=== PATIENT | female | born 1960 | race Caucasian/White ===

== ENCOUNTER 2020-09-06 13:02 | Outpatient (CLI) | payer MEDICAID, SELFPAY ==
--- NOTE | 2020-09-06 13:12 | XRR_ITS ---
PROCEDURE INFORMATION: Exam: XR Chest, 2 Views Exam date and time: 09/06/2020 1:12 PM Age: 60 years old Clinical indication: Cough; Additional info: Cough x 6 months TECHNIQUE: Imaging protocol: XR of the chest Views: 2 views. COMPARISON: No relevant prior studies available. FINDINGS: Lungs: Unremarkable. No consolidation. Pleural space: Unremarkable. No pleural effusion. No pneumothorax. Heart/Mediastinum: Unremarkable. No cardiomegaly. Bones/joints: Unremarkable. XR/XR chest 2V* [id number] IMPRESSION: No acute findings.
== END 2020-09-06 13:03 | disposition home or self-care (01) ==
PROVIDERS: PCP Family Medicine; Visit Provider Family Medicine
DX: R05 Cough (principal)
CPT/HCPCS: 71046

== ENCOUNTER 2020-11-22 08:44 | Outpatient (CLI) | payer MEDICAID, SELFPAY ==
--- NOTE | 2020-11-22 08:55 | MM_ITS ---
WS: [id number] SCREENING DIGITAL MAMMOGRAM WITH CAD HISTORY: SCREENING COMPARISON: 09/13/2019, 07/07/2018 and 07/16/2016 Bilateral CC and MLO views submitted. Computer aided detection analyzed. Breast composition: There are scattered areas of fibroglandular density. Increasing density and asymm etry seen best on the LEFT MLO projection in the superior breast measures 8 mm. Not significantly josefina nged on the CC projection. Otherwise no change. Biopsy clip noted 3:00 RIGHT breast. MM/[id number] IMPRESSION: BI-RADS: 0-Incomplete: Need additional imaging evaluation FOLLOW UP: Need Additional Imaging LEFT breast: Spot compression views (CC and MLO). True ML. Ultrasound to follow if abnormality persists.
== END 2020-11-22 08:45 | disposition home or self-care (01) ==
LOC: RADSHAW 08:45
PROVIDERS: PCP Family Medicine; Visit Provider Family Medicine
DX: Z12.31 Encounter for screening mammogram for malignant neoplasm of breast (principal); N64.89 Other specified disorders of breast
CPT/HCPCS: 77067

== ENCOUNTER 2021-01-02 10:06 | Outpatient (CLI) | payer MEDICAID, SELFPAY ==
--- NOTE | 2021-01-02 10:11 | US_ITS ---
WS: [id number] ADDITIONAL VIEWS LEFT MAMMOGRAM LEFT BREAST ULTRASOUND HISTORY: LT BREAST ABNORMAL MAMMOGRAM COMPARISON: 11/22/2020 and 09/13/2019 LEFT MAMMOGRAM: Spot compression views and true ML. Mild asymmetry persists, best seen on the MLO projection. This area measures about 6 mm. On the CC an d MLO projection less distinct nodularity. This may be superimposed fibroglandular tissue. LEFT BREAST ULTRASOUND 2-D and color Doppler imaging submitted. There is 3 minimally complex cyst noted in the upper outer quadrant of the LEFT breast. At 1:00 2 cm the nipple is a cyst measuring 5 x 3 x 4 mm. There is an additional cyst which is much smaller at 1:0 0. This is also a 2 cm from the nipple. At 2:00, 1 cm from the nipple is a lobulated cyst measuring 5 x 4 x 5 mm. US/US breast LT limited* [id number] IMPRESSION: BI-RADS: 3-Probably Benign FOLLOW UP: 6 Month Follow-up Recommend 6 month LEFT breast ultrasound follow-up of 3 cysts which are slightl y complex in the upper outer quadrant.
== END 2021-01-02 10:07 | disposition home or self-care (01) ==
LOC: RADSHAW 10:08
PROVIDERS: PCP Family Medicine; Visit Provider Family Medicine
DX: R92.8 Other abnormal and inconclusive findings on diagnostic imaging of breast (principal); N60.02 Solitary cyst of left breast
CPT/HCPCS: 76642; 77065

== ENCOUNTER 2021-08-20 09:00 | Outpatient (CLI) | payer MEDICAID, SELFPAY ==
--- NOTE | 2021-08-20 09:06 | US_ITS ---
WS: [id number] ULTRASOUND BREAST LEFT TECHNIQUE: Ultrasound left breast focused area of concern. CLINICAL INFORMATION: ABNORMAL MAMMOGRAM LEFT BREAST COMPARISON: Ultrasound left breast January 02, 2021 FINDINGS: Ultrasound left breast at the 1 to 2:00 position. A few tiny hypoechoic complex cysts cysts subcentim eter in size largest at the 2:00 position measuring 4.2 x 4.1 mm. Small cystic lesions are unchanged since January 02, 2021. Findings have a benign appearance. Recommend return to annual screening mammogr aphy. US/US breast LT limited* [id number] IMPRESSION: BI-RADS 2 benign Recommend return to annual screening mammography
== END 2021-08-20 09:01 | disposition home or self-care (01) ==
PROVIDERS: PCP Family Medicine; Visit Provider Family Medicine
DX: R92.8 Other abnormal and inconclusive findings on diagnostic imaging of breast (principal); N60.02 Solitary cyst of left breast
CPT/HCPCS: 76642

== ENCOUNTER → 2022-06-25 08:54 | Outpatient (BNVA) | payer MEDICAID, SELFPAY | PROVIDERS: PCP Family Medicine; Visit Provider Family Medicine | DX: Z00.00 Encounter for general adult medical examination without abnormal findings (principal) | CPT/HCPCS: 80053; 80061; 85025 ==

== ENCOUNTER 2023-01-02 08:40 | Outpatient (CLI) | payer MEDICAID, SELFPAY ==
--- NOTE | 2023-01-02 08:47 | MM_ITS ---
WS: [id number] Bilateral screening 3D tomosynthesis digital mammogram, 01/02/2023 Clinical Data: SCREENING Comparison: 01/02/2021, 11/22/2020, 09/13/2019, 07/07/2018, 07/16/2016, 06/14/2013, 05/04/2012, 04/09/2011, 04/02/2010, 04/11/2009, 10/16/2008, 04/09/2007 11/02/2006.. Findings: The breast parenchymal pattern shows fibroglandular tissue. No spiculated masses or clustered calcifi cations are seen. There are no secondary signs of carcinoma. Mole markers are on both breasts. MM/[place] [id number] Impression: 1. Negative bilateral mammogram unchanged. 2. Recommend annual screening mammograms. BIRADS: 1-Negative FOLLOW UP: 1 Year Follow-up The CAD battery checker was used.
== END 2023-01-02 08:41 | disposition home or self-care (01) ==
PROVIDERS: PCP Family Medicine; Visit Provider Family Medicine
DX: Z12.31 Encounter for screening mammogram for malignant neoplasm of breast (principal)
CPT/HCPCS: 77063; 77067

== ENCOUNTER → 2023-06-25 09:05 | Outpatient (BNVA) | payer MEDICAID, SELFPAY | PROVIDERS: PCP Family Medicine; Visit Provider Family Medicine | DX: Z00.00 Encounter for general adult medical examination without abnormal findings (principal) | CPT/HCPCS: 80053; 80061; 85025 ==

== ENCOUNTER 2024-01-15 08:09 | Outpatient (CLI) | payer MEDICAID, SELFPAY ==
--- NOTE | 2024-01-15 08:17 | MM_ITS ---
WS: [id number] Bilateral screening 3D tomosynthesis digital mammogram, 01/15/2024 Clinical Data: SCREENING Comparison: 01/02/2023, 01/02/2021, 11/22/2020, 09/13/2019, 07/07/2018, 07/16/2016, 06/14/2013, 05/04/2012, 04/09/2011, 04/02/2010, 04/11/2009, 10/16/2008, 04/10/2008, 04/09/2007, 11/02/2006.. Findings: The breast parenchymal pattern shows fibroglandular tissue. No spiculated masses or clustered calcifi cations are seen. There are no secondary signs of carcinoma. There are lymph nodes in both axilla. Th ere are mole markers on the left breast. There is a biopsy clip in the right breast. Impression: 1. Negative bilateral mammogram unchanged. 2. Recommend annual screening mammograms. MM/[place] [id number] BIRADS: 1-Negative FOLLOW UP: 1 Year Follow-up The CAD color checker was used.
== END 2024-01-15 08:10 | disposition home or self-care (01) ==
LOC: RAD 08:10
PROVIDERS: PCP Family Medicine; Visit Provider Family Medicine
DX: Z12.31 Encounter for screening mammogram for malignant neoplasm of breast (principal)
CPT/HCPCS: 77063; 77067

== ENCOUNTER → 2024-06-29 08:29 | Outpatient (BNVA) | payer MEDICAID, SELFPAY | PROVIDERS: PCP Family Medicine; Visit Provider Family Medicine | DX: Z00.00 Encounter for general adult medical examination without abnormal findings (principal) | CPT/HCPCS: 80053; 80061; 85025 ==